=== PATIENT | male | born 1995 | race Caucasian/White ===

== ENCOUNTER 2017-02-16 20:33 | Emergency (ER) | payer OTHER ==
[~2017-02-16] VITALS: Ht 170.2 cm; Wt 78.1 kg
[~2017-02-16 20:33] MED LIST: MOTRIN600 MG PO; SKELAXIN800 MG PO
[2017-02-16] MEDS ORDERED: MOTRIN600 MG PO (21:18)
[2017-02-16 21:58] VITALS: BP 130/82
== END 2017-02-16 21:59 | disposition home or self-care (01) ==
LOC: EME 20:33
DX: S20.20XA Contusion of thorax, unspecified, initial encounter (principal); W03.XXXA Other fall on same level due to collision with another person, initial encounter; Y93.61 Activity, american tackle football; Z88.1 Allergy status to other antibiotic agents
CPT/HCPCS: 99281; 99283

== ENCOUNTER 2017-03-12 18:00 | Emergency (ER) | payer OTHER ==
[~2017-03-12] VITALS: Ht 170.2 cm; Wt 77.6 kg
[2017-03-12] MEDS ORDERED: ALLEGRA ALLERG180 MG PO (18:36)
[2017-03-12] MEDS ORDERED: ACULAR 0.5100 DROP/5 RIGHT EYE (18:36)
[2017-03-12 18:52] VITALS: BP 135/80
== END 2017-03-12 18:53 | disposition home or self-care (01) ==
LOC: EME 18:00
DX: H10.11 Acute atopic conjunctivitis, right eye (principal); Z88.1 Allergy status to other antibiotic agents
CPT/HCPCS: 99281; 99283

== ENCOUNTER 2017-04-21 13:53 | Emergency (ER) | payer OTHER ==
[~2017-04-21] VITALS: Ht 170.2 cm; Wt 77.6 kg
[~2017-04-21 13:53] MED LIST changes: +ACULAR 0.5100 DROP/5 RIGHT EYE; +ALLEGRA ALLERG180 MG PO
[2017-04-21 14:30] VITALS: BP 102/62
[2017-04-21] MEDS ORDERED: ULTRAM50 MG PO (16:47)
[2017-04-21] MEDS ORDERED: NAPROSYN500 MG PO (16:47)
== END 2017-04-21 17:47 | disposition home or self-care (01) ==
LOC: EME 13:53
DX: S83.8X1A Sprain of other specified parts of right knee, initial encounter (principal); M25.561 Pain in right knee; W17.89XA Other fall from one level to another, initial encounter; Y99.1 Military activity; Z88.1 Allergy status to other antibiotic agents
CPT/HCPCS: 73564; 99281; 99284

== ENCOUNTER 2017-06-27 23:17 | Emergency (ER) | payer OTHER ==
[~2017-06-27] VITALS: Ht 167.6 cm; Wt 80.7 kg
[~2017-06-27 23:17] MED LIST changes: +NAPROSYN500 MG PO; +ULTRAM50 MG PO
[2017-06-28] MEDS ORDERED: NAPROXEN500 MG PO (01:09)
[2017-06-28 01:16] VITALS: BP 130/71
== END 2017-06-28 01:17 | disposition home or self-care (01) ==
LOC: EME 23:17
DX: M76.51 Patellar tendinitis, right knee (principal); G89.29 Other chronic pain; M25.561 Pain in right knee
CPT/HCPCS: 99281; 99284

== ENCOUNTER 2018-01-25 21:34 | Emergency (ER) | payer OTHER ==
[~2018-01-25] VITALS: Ht 170.2 cm; Wt 80.7 kg
[~2018-01-25 21:34] MED LIST changes: +NAPROXEN500 MG PO
[2018-01-25 23:33] LABS: HEMATOCRIT 41.6 % (38.0-50.0); HEMOGLOBIN 14.5 G/DL (12.5-16.6); MCH 30.2 PG (29.0-34.0); MCHC 34.9 G/DL (30.0-36.0); MCV 86.7 FL (86-99); PLATELET COUNT 264 K/uL (156-360); RBC DIS.WIDTH-CV 11.6 % (11.8-14.6); RBC DIS.WIDTH-SD 36.6 % (39-53); WHITE BLOOD COUNT 10.4 K/uL (4.1-10.2)
[2018-01-25 23:46] LABS: ALBUMIN 4.4 g/dL (3.2-4.8); CHLORIDE 98 mEq/L (99-109); POTASSIUM 3.7 mEq/L (3.7-5.4); SODIUM 137 mEq/L (136-147)
[2018-01-25 23:48] LABS: GLUCOSE 90 mg/dL (70-99)
[2018-01-25 23:49] LABS: TOTAL PROTEIN 7.8 g/dL (6.4-8.3)
[2018-01-25 23:50] LABS: TOTAL BILIRUBIN 1.8 mg/dL (0.0-1.0)
[2018-01-25 23:52] LABS: ALKALINE PHOSPHATASE 58 IU/L (3-129); CREATININE 1.1 mg/dL (0.6-1.3); GFR ESTIMATE (CALCULATED) > 59 mL/min/ (58.99-99999)
[2018-01-25 23:53] LABS: UREA NITROGEN (BUN) 14 mg/dL (9-23)
[2018-01-25 23:54] LABS: AST (GOT) 24 IU/L (2-34)
[2018-01-25 23:55] LABS: ALT (GPT) 18 IU/L (3-49); LIPASE 19 U/L (1.0-51.0)
[2018-01-26] MEDS ORDERED: ZOFRAN4 MG PO (00:57)
[2018-01-26] MEDS ORDERED: MOTRIN800 MG PO (00:57)
[2018-01-26 01:16] VITALS: BP 135/92
[2018-01-30] MEDS ORDERED: KEPPRA750 MG PO (10:54)
== END 2018-01-26 01:16 | disposition home or self-care (01) ==
LOC: EME 21:34
PROVIDERS: Physician Assistant
DX: R11.2 Nausea with vomiting, unspecified (principal); R19.7 Diarrhea, unspecified; S30.0XXA Contusion of lower back and pelvis, initial encounter; W20.8XXA Other cause of strike by thrown, projected or falling object, initial encounter; Y93.89 Activity, other specified; J45.909 Unspecified asthma, uncomplicated; Z88.1 Allergy status to other antibiotic agents
CPT/HCPCS: 76705; 80053; 83690; 85027; 99281; 99284

== ENCOUNTER 2018-01-28 21:47 | Emergency (ER) | payer OTHER ==
[~2018-01-28] VITALS: Ht 170.2 cm; Wt 83.1 kg
[~2018-01-28 21:47] MED LIST changes: +MOTRIN800 MG PO; +ZOFRAN4 MG PO
[2018-01-28 22:51] LABS: HEMATOCRIT 39.8 % (38.0-50.0); HEMOGLOBIN 13.8 G/DL (12.5-16.6); MCH 30.1 PG (29.0-34.0); MCHC 34.7 G/DL (30.0-36.0); MCV 86.7 FL (86-99); PLATELET COUNT 261 K/uL (156-360); RBC DIS.WIDTH-CV 11.7 % (11.8-14.6); RBC DIS.WIDTH-SD 36.7 % (39-53); RED BLOOD COUNT 4.59 M/uL (4.00-5.50)
[2018-01-28 23:09] LABS: ALBUMIN 4.4 g/dL (3.2-4.8)
[2018-01-28 23:10] LABS: CHLORIDE 99 mEq/L (99-109); POTASSIUM 3.1 mEq/L (3.7-5.4); SODIUM 138 mEq/L (136-147)
[2018-01-28 23:12] LABS: GLUCOSE 97 mg/dL (70-99); TOTAL PROTEIN 7.6 g/dL (6.4-8.3)
[2018-01-28 23:14] LABS: TOTAL BILIRUBIN 1.5 mg/dL (0.0-1.0)
[2018-01-28 23:15] LABS: ALKALINE PHOSPHATASE 55 IU/L (3-129)
[2018-01-28 23:16] LABS: CREATININE 1.1 mg/dL (0.6-1.3); GFR ESTIMATE (CALCULATED) > 59 mL/min/ (58.99-99999)
[2018-01-28 23:17] LABS: AST (GOT) 22 IU/L (2-34); UREA NITROGEN (BUN) 11 mg/dL (9-23)
[2018-01-28 23:18] LABS: ALT (GPT) 15 IU/L (3-49)
[2018-01-28 23:19] LABS: LIPASE 17 U/L (1.0-51.0)
[2018-01-29 00:07] LABS: APPEARANCE CLEAR ((CLEAR)); BILIRUBIN NEGATIVE; BLOOD NEGATIVE; COLOR YELLOW ((YELLOW)); GLUCOSE (STRIP) NEGATIVE; KETONES 20; LEUKOCYTES NEGATIVE; NITRITE NEGATIVE; PROTEIN (STRIP) NEGATIVE; SPECIFIC GRAVITY 1.016 (1.000-1.030); UCUL ADDED? NO
[2018-01-29 00:15] LABS: AMPHETAMINE NEGATIVE (500 ng/mL); BARBITURATES NEGATIVE (200 ng/mL); BENZODIAZEPINES NEGATIVE (150 ng/mL); BUPRENORPHINE NEGATIVE (10 ng/mL); COCAINE NEGATIVE (150 ng/mL); METHADONE NEGATIVE (200 ng/mL); METHAMPHETAMINE NEGATIVE (500 ng/mL); OPIATES (MORPHINE) NEGATIVE (100 ng/mL); OXYCODONE NEGATIVE (100 ng/mL); PHENCYCLIDINE NEGATIVE (25 ng/mL); PROPOXYPHENE NEGATIVE (300 ng/mL); THC CANNABINOIDS NEGATIVE (50 ng/mL); TRICYCLIC ANTIDEPRESSANTS NEGATIVE (300 ng/mL)
[2018-01-29] MEDS ORDERED: TRAMADOL HCL50 MG PO (01:43)
[2018-01-29] MEDS ORDERED: PHENERGAN12.5 MG PR (01:43)
[2018-01-29 02:11] VITALS: BP 127/57
[2018-01-30] MEDS ORDERED: KEPPRA750 MG PO (10:54)
== END 2018-01-29 02:13 | disposition home or self-care (01) ==
LOC: EME 21:47
PROVIDERS: Physician Assistant
DX: R11.2 Nausea with vomiting, unspecified (principal); R19.7 Diarrhea, unspecified; R10.31 Right lower quadrant pain; E87.6 Hypokalemia; J45.909 Unspecified asthma, uncomplicated; Z88.1 Allergy status to other antibiotic agents
CPT/HCPCS: 74177; 80053; 81003; 83690; 85027; 99281; 99285; J2405; J3010; J7030